=== PATIENT | male | born 1955 | race Caucasian/White ===

== ENCOUNTER 2022-09-01 07:52 | Day surgery (SDC) | payer OTHER ==
[~2022-09-01] VITALS: Ht 176.5 cm; Wt 73.9 kg
[2022-09-01] MEDS ORDERED: fentaNYL citrate 0.05 MG/ML VIAL ONE (10:07)
[2022-09-01] MEDS ORDERED: MIDAZOLAM 5 MG/5 ML VIAL ONE (10:07)
[2022-09-01] MEDS ORDERED: LIDOCAINE 2% 100 MG/5 ML UJET TP ONE (10:07)
[2022-09-01] MEDS ORDERED: fentaNYL citrate 0.05 MG/ML VIAL IVP ONE (12:10)
== END 2022-09-01 11:23 | disposition home or self-care (01) ==
LOC: MMU 07:52 → MDS 07:52
PROVIDERS: ATTEND Internal Medicine Gastroenterology
DX: Z12.11 Encounter for screening for malignant neoplasm of colon (principal); I10 Essential (primary) hypertension; E11.9 Type 2 diabetes mellitus without complications; E78.5 Hyperlipidemia, unspecified; Z79.84 Long term (current) use of oral hypoglycemic drugs; Z79.899 Other long term (current) drug therapy; Z20.822 Contact with and (suspected) exposure to COVID-19
CPT/HCPCS: 87426; G0121; J3010; J2250